=== PATIENT | male | born 1980 | race Caucasian/White ===

== ENCOUNTER 2017-11-19 17:12 | Emergency (ER) | payer OTHER ==
[~2017-11-19] VITALS: Ht 185.4 cm; Wt 81.8 kg
[~2017-11-19 17:12] MED LIST: MOTRIN800 MG PO
[2017-11-19 18:14] LABS: HEMATOCRIT 39.9 % (38.0-50.0); HEMOGLOBIN 13.5 G/DL (12.5-16.6); MCH 30.5 PG (29.0-34.0); MCHC 33.8 G/DL (30.0-36.0); MCV 90.3 FL (86-99); PLATELET COUNT 316 K/uL (156-360); RBC DIS.WIDTH-CV 13.2 % (11.8-14.6); RBC DIS.WIDTH-SD 44.1 % (39-53); RED BLOOD COUNT 4.42 M/uL (4.00-5.50); WHITE BLOOD COUNT 5.6 K/uL (4.1-10.2)
[2017-11-19 18:28] LABS: ALBUMIN 4.3 g/dL (3.2-4.8); CHLORIDE 109 mEq/L (99-109); SODIUM 141 mEq/L (136-147)
[2017-11-19 18:30] LABS: GLUCOSE 92 mg/dL (70-99); TOTAL PROTEIN 7.8 g/dL (6.4-8.3)
[2017-11-19 18:32] LABS: APPEARANCE CLEAR ((CLEAR)); BILIRUBIN NEGATIVE; BLOOD NEGATIVE; COLOR STRAW ((YELLOW)); GLUCOSE (STRIP) NEGATIVE; KETONES NEGATIVE; LEUKOCYTES NEGATIVE; NITRITE NEGATIVE; PROTEIN (STRIP) NEGATIVE; SPECIFIC GRAVITY 1.005 (1.000-1.030); UCUL ADDED? NO; UROBILINOGEN 0.2 MG/DL (0.2-1.0)
[2017-11-19 18:32] LABS: TOTAL BILIRUBIN 0.4 mg/dL (0.0-1.0)
[2017-11-19 18:33] LABS: SERUM ETHYL ALCOHOL 229 mg/dL
[2017-11-19 18:34] LABS: ALKALINE PHOSPHATASE 88 IU/L (3-129); CREATININE 0.9 mg/dL (0.6-1.3); GFR ESTIMATE (CALCULATED) > 59 mL/min/ (58.99-99999)
[2017-11-19 18:35] LABS: UREA NITROGEN (BUN) 7 mg/dL (9-23)
[2017-11-19 18:36] LABS: AST (GOT) 26 IU/L (2-34)
[2017-11-19 18:37] LABS: ALT (GPT) 20 IU/L (3-49)
[2017-11-19 18:57] LABS: AMPHETAMINE PRESUMPTIVE POSITIVE (500 ng/mL); BARBITURATES NEGATIVE (200 ng/mL); BENZODIAZEPINES NEGATIVE (150 ng/mL); BUPRENORPHINE NEGATIVE (10 ng/mL); COCAINE PRESUMPTIVE POSITIVE (150 ng/mL); METHADONE NEGATIVE (200 ng/mL); METHAMPHETAMINE NEGATIVE (500 ng/mL); OPIATES (MORPHINE) PRESUMPTIVE POSITIVE (100 ng/mL); OXYCODONE NEGATIVE (100 ng/mL); PHENCYCLIDINE NEGATIVE (25 ng/mL); PROPOXYPHENE NEGATIVE (300 ng/mL); THC CANNABINOIDS NEGATIVE (50 ng/mL); TRICYCLIC ANTIDEPRESSANTS NEGATIVE (300 ng/mL)
[2017-11-20 00:37] VITALS: BP 128/74
== END 2017-11-20 00:38 | disposition home or self-care (01) ==
LOC: EME 17:12
PROVIDERS: Emergency Medicine
DX: F10.129 Alcohol abuse with intoxication, unspecified (principal); Y90.7 Blood alcohol level of 200-239 mg/100 ml; Z04.6 Encounter for general psychiatric examination, requested by authority; F17.200 Nicotine dependence, unspecified, uncomplicated; F90.9 Attention-deficit hyperactivity disorder, unspecified type; F32.9 Major depressive disorder, single episode, unspecified; Z91.5 Personal history of self-harm; Z87.19 Personal history of other diseases of the digestive system; Z88.6 Allergy status to analgesic agent
CPT/HCPCS: 80053; 81003; 84999; 85027; 90837; 99281; 99285; G0480

== ENCOUNTER 2018-01-20 20:18 | Emergency (ER) | payer OTHER ==
[~2018-01-20] VITALS: Ht 182.9 cm; Wt 76.9 kg
[2018-01-20 21:32] LABS: HEMATOCRIT 34.5 % (38.0-50.0); HEMOGLOBIN 11.5 G/DL (12.5-16.6); MCH 31.3 PG (29.0-34.0); MCHC 33.3 G/DL (30.0-36.0); PLATELET COUNT 286 K/uL (156-360); RBC DIS.WIDTH-CV 14.5 % (11.8-14.6); RBC DIS.WIDTH-SD 50.3 % (39-53); RED BLOOD COUNT 3.67 M/uL (4.00-5.50); WHITE BLOOD COUNT 13.4 K/uL (4.1-10.2)
[2018-01-20 21:43] LABS: CHLORIDE 103 mEq/L (99-109); SODIUM 139 mEq/L (136-147)
[2018-01-20 21:44] LABS: GLUCOSE 66 mg/dL (70-99)
[2018-01-20 21:48] LABS: CREATININE 0.9 mg/dL (0.6-1.3); GFR ESTIMATE (CALCULATED) > 59 mL/min/ (58.99-99999)
[2018-01-20 21:49] LABS: UREA NITROGEN (BUN) 9 mg/dL (9-23)
[2018-01-20 23:13] VITALS: BP 94/59
== END 2018-01-20 23:13 ==
LOC: EME 20:18
PROC: 0H9LXZZ Drainage of Left Lower Leg Skin, External Approach (ICD-10-PCS; principal; 2018-01-20)
DX: L03.116 Cellulitis of left lower limb (principal); L02.416 Cutaneous abscess of left lower limb; Z87.891 Personal history of nicotine dependence
CPT/HCPCS: 80048; 83605; 85027; 87040; 99281; 99284

== ENCOUNTER 2018-01-24 21:55 | Inpatient (IN) | payer OTHER ==
[~2018-01-24] VITALS: Ht 188 cm; Wt 80.5 kg
[2018-01-24 23:05] LABS: BASOPHIL (%) 0.5 % (0-1); EOSINOPHIL (%) 3.3 % (0-5); EOSINOPHIL COUNT 0.3 K/uL (0-0.3); HEMATOCRIT 34.7 % (38.0-50.0); HEMOGLOBIN 11.6 G/DL (12.5-16.6); IMMATURE GRANULOCYTE (%) 0.5 % (0.0-0.7); LYMPHOCYTE (%) 21.2 % (15-42); LYMPHOCYTE COUNT 1.7 K/uL (1.0-2.8); MCH 31.7 PG (29.0-34.0); MCHC 33.4 G/DL (30.0-36.0); MCV 94.8 FL (86-99); MONOCYTE (%) 7.7 % (3-12); MONOCYTE COUNT 0.6 K/uL (0-0.8); NEUTROPHIL (%) 66.8 % (45-76); NEUTROPHIL COUNT 5.5 K/uL (1.8-6.4); RBC DIS.WIDTH-CV 14.4 % (11.8-14.6); RBC DIS.WIDTH-SD 49.7 % (39-53); RED BLOOD COUNT 3.66 M/uL (4.00-5.50); WHITE BLOOD COUNT 8.2 K/uL (4.1-10.2)
[2018-01-24] MEDS ORDERED: BUSPAR10 MG PO (23:37)
[2018-01-24] MEDS ORDERED: ADVIL,NUPRIN,M200 MG PO (23:38)
[2018-01-24] MEDS ORDERED: BACTRIM,SEPT1 TABLET PO (23:39)
[2018-01-24] MEDS ORDERED: LITHIUM CARBON150 MG PO (23:39)
[2018-01-24] MEDS ORDERED: VITAMIN B12 100MCG PO (23:40)
[2018-01-24 23:54] LABS: CHLORIDE 106 mEq/L (99-109); SODIUM 137 mEq/L (136-147)
[2018-01-24 23:55] LABS: GLUCOSE 85 mg/dL (70-99)
[2018-01-24 23:59] LABS: GFR ESTIMATE (CALCULATED) > 59 mL/min/ (58.99-99999)
[2018-01-25] LABS: UREA NITROGEN (BUN) 10 mg/dL (9-23)
[2018-01-25 00:06] LABS: POTASSIUM 6.5 mEq/L (3.7-5.4)
[2018-01-25 00:23] LABS: APPEARANCE CLEAR ((CLEAR)); BILIRUBIN NEGATIVE; BLOOD NEGATIVE; COLOR YELLOW ((YELLOW)); GLUCOSE (STRIP) NEGATIVE; KETONES NEGATIVE; LEUKOCYTES NEGATIVE; NITRITE NEGATIVE; PROTEIN (STRIP) NEGATIVE; SPECIFIC GRAVITY 1.016 (1.000-1.030); UCUL ADDED? NO; UROBILINOGEN 0.2 MG/DL (0.2-1.0)
[2018-01-25 02:05] LABS: POTASSIUM 4.1 mEq/L (3.7-5.4)
[2018-01-25 02:19] VITALS: BP 113/59
[2018-01-25 02:57] LABS: PLATELET COUNT 475 K/uL (156-360)
[2018-01-25 08:13] VITALS: BP 115/59
[2018-01-25 12:37] VITALS: BP 119/58
[2018-01-25 16:49] VITALS: BP 108/60
[2018-01-25 23:57] VITALS: BP 109/60
[2018-01-26 07:16] LABS: BASOPHIL (%) 0.8 % (0-1); BASOPHIL COUNT 0.1 K/uL (0-0.1); EOSINOPHIL (%) 3.9 % (0-5); EOSINOPHIL COUNT 0.2 K/uL (0-0.3); HEMATOCRIT 39.1 % (38.0-50.0); HEMOGLOBIN 12.3 G/DL (12.5-16.6); IMMATURE GRANULOCYTE (%) 0.5 % (0.0-0.7); LYMPHOCYTE (%) 21.5 % (15-42); LYMPHOCYTE COUNT 1.3 K/uL (1.0-2.8); MCH 30.2 PG (29.0-34.0); MCHC 31.5 G/DL (30.0-36.0); MCV 96.1 FL (86-99); MONOCYTE (%) 8.9 % (3-12); MONOCYTE COUNT 0.6 K/uL (0-0.8); NEUTROPHIL (%) 64.4 % (45-76); PLATELET COUNT 566 K/uL (156-360); RBC DIS.WIDTH-CV 13.6 % (11.8-14.6); RBC DIS.WIDTH-SD 48.4 % (39-53); RED BLOOD COUNT 4.07 M/uL (4.00-5.50); WHITE BLOOD COUNT 6.2 K/uL (4.1-10.2)
[2018-01-26 07:37] LABS: CHLORIDE 107 MEQ/L (99-109); CREATININE 0.9 MG/DL (0.6-1.3); GFR ESTIMATE (CALCULATED) > 59 mL/min/ (58.99-99999); GLUCOSE 88 mg/dL (70-99); MAGNESIUM 2.2 mg/dl (1.3-2.7); POTASSIUM 4.9 MEQ/L (3.7-5.4); SODIUM 142 MEQ/L (136-147); UREA NITROGEN (BUN) 12 mg/dL (9-23)
[2018-01-26 08:00] VITALS: BP 110/62
[2018-01-26 12:16] LABS: CREATININE 0.8 MG/DL (0.6-1.3); GFR ESTIMATE (CALCULATED) > 59 mL/min/ (58.99-99999); VANCOMYCIN, TROUGH 11.9 MCG/ML (10-20)
[2018-01-26 13:03] LABS: C-REACTIVE PROTEIN 20.5 MG/L (0-10)
[2018-01-26 13:39] LABS: ERTH.SED.RATE 49 MM/HR (0-15)
[2018-01-26 17:32] VITALS: BP 113/65
[2018-01-26 23:11] VITALS: BP 106/63
[2018-01-27 07:34] VITALS: BP 116/61
[2018-01-27 15:42] VITALS: BP 117/59
[2018-01-27 23:16] VITALS: BP 115/57
[2018-01-28 06:42] LABS: BASOPHIL (%) 1.2 % (0-1); BASOPHIL COUNT 0.1 K/uL (0-0.1); EOSINOPHIL (%) 3.6 % (0-5); EOSINOPHIL COUNT 0.2 K/uL (0-0.3); HEMOGLOBIN 12.4 G/DL (12.5-16.6); IMMATURE GRANULOCYTE (%) 0.3 % (0.0-0.7); LYMPHOCYTE (%) 26.5 % (15-42); LYMPHOCYTE COUNT 1.7 K/uL (1.0-2.8); MCH 30.4 PG (29.0-34.0); MCHC 31.8 G/DL (30.0-36.0); MCV 95.6 FL (86-99); MONOCYTE (%) 9.2 % (3-12); MONOCYTE COUNT 0.6 K/uL (0-0.8); NEUTROPHIL (%) 59.2 % (45-76); NEUTROPHIL COUNT 3.8 K/uL (1.8-6.4); PLATELET COUNT 619 K/uL (156-360); RBC DIS.WIDTH-CV 13.2 % (11.8-14.6); RBC DIS.WIDTH-SD 46.8 % (39-53); RED BLOOD COUNT 4.08 M/uL (4.00-5.50); WHITE BLOOD COUNT 6.4 K/uL (4.1-10.2)
[2018-01-28 07:04] LABS: ALBUMIN 3.6 G/DL (3.2-4.8); ALKALINE PHOSPHATASE 49 IU/L (3-129); ALT (GPT) 10 IU/L (3-49); AST (GOT) 13 IU/L (2-34); CHLORIDE 103 MEQ/L (99-109); CREATININE 0.8 MG/DL (0.6-1.3); GFR ESTIMATE (CALCULATED) > 59 mL/min/ (58.99-99999); GLUCOSE 82 mg/dL (70-99); POTASSIUM 5.1 MEQ/L (3.7-5.4); SODIUM 137 MEQ/L (136-147); TOTAL BILIRUBIN 0.2 MG/DL (0.0-1.0); TOTAL PROTEIN 6.7 G/DL (6.4-8.3); UREA NITROGEN (BUN) 18 mg/dL (9-23)
[2018-01-28 08:00] VITALS: BP 103/56
[2018-01-28 11:07] LABS: HEPATITIS C ANTIBODY REACTIVE
[2018-01-28] MEDS ORDERED: ADVIL,NUPRIN,M200 MG PO (11:46)
[2018-01-28] MEDS ORDERED: AUGMENTIN875 MG PO (11:47)
[2018-01-28] MEDS ORDERED: BACTRIM,SEPT1 TABLET PO (11:47)
== END 2018-01-28 15:15 | DRG 603 ==
LOC: EME → EDBD 21:55 → 3EAST 23:50 → EDOF 23:50 → ENRESERV 23:51 → 3EAST 01-25 02:07
PROVIDERS: Emergency Medicine; Hospitalist; Internal Medicine Infectious Disease; Student in an Organized Health Care Education/Training Program
PROC: 0HDNXZZ Extraction of Left Foot Skin, External Approach (ICD-10-PCS; principal; 2018-01-27)
DX: L03.116 Cellulitis of left lower limb (principal); D64.9 Anemia, unspecified; I10 Essential (primary) hypertension; F12.90 Cannabis use, unspecified, uncomplicated; Z59.0 Homelessness; F31.9 Bipolar disorder, unspecified; I80.9 Phlebitis and thrombophlebitis of unspecified site; M86.9 Osteomyelitis, unspecified; E87.5 Hyperkalemia; W57.XXXA Bitten or stung by nonvenomous insect and other nonvenomous arthropods, initial encounter; F17.210 Nicotine dependence, cigarettes, uncomplicated; Z88.6 Allergy status to analgesic agent; L97.201 Non-pressure chronic ulcer of unspecified calf limited to breakdown of skin; M67.40 Ganglion, unspecified site; F11.90 Opioid use, unspecified, uncomplicated; L97.529 Non-pressure chronic ulcer of other part of left foot with unspecified severity
CPT/HCPCS: 70140; 73610; 73630; 73720; 76882; 80048; 80053; 80178; 80202; 81003; 82550; 82550 91; 82565; 83605; 83735; 84132; 85025; 85651; 86140; 86803; 87070; 87075; 87205; 99281; 99285; J0295; J0690; J1644; J1885; J3370; J7030; J7050